=== PATIENT | female | born 1990 | race Caucasian/White ===

== ENCOUNTER 2019-01-11 19:19 | Emergency (ER) | payer OTHER ==
[~2019-01-11] VITALS: Ht 170.2 cm; Wt 57.2 kg
[2019-01-11 19:51] VITALS: Ht 170.2 cm; Wt 57.2 kg
[2019-01-11 21:52] VITALS: BP 139/107
== END 2019-01-11 21:53 | disposition home or self-care (01) ==
LOC: ED 19:19
DX: S06.0X0A Concussion without loss of consciousness, initial encounter (principal); S16.1XXA Strain of muscle, fascia and tendon at neck level, initial encounter; Z91.013 Allergy to seafood; W20.8XXA Other cause of strike by thrown, projected or falling object, initial encounter; Y93.89 Activity, other specified; Y92.89 Other specified places as the place of occurrence of the external cause; Y99.8 Other external cause status
CPT/HCPCS: Q0162